=== PATIENT | female | born 1980 | race Caucasian/White ===

== ENCOUNTER → 2017-09-29 | Outpatient (CLI) | payer BC ==
[~2017-09-29] VITALS: Ht 166.4 cm; Wt 133.8 kg
[~2017-09-29] MED LIST: ADVAIR 100/501 DISK IH; ENDOCET 5-3251 EACH PO; GLUCOPHAGE500 MG PO; HYDROCHLOROTHIA25 MG PO; IBUPROFEN800 MG PO; MIRENA1 EACH IY; NEXIUM40 MG PO; PRENA1 CHEW TA1.4 MG PO; SINGULAIR10 MG PO; SYMBICORT60 INHALA1 IH; VENTOLIN HFA18 GM IH; ZYRTEC10 M2 PO
== END | disposition home or self-care (01) ==
LOC: AMB 13:37
PROC: 0DB68ZX Excision of Stomach, Via Natural or Artificial Opening Endoscopic, Diagnostic (ICD-10-PCS; principal; 2017-09-29)
DX: K21.9 Gastro-esophageal reflux disease without esophagitis (principal); K31.7 Polyp of stomach and duodenum; K44.9 Diaphragmatic hernia without obstruction or gangrene; E66.01 Morbid (severe) obesity due to excess calories; Z68.42 Body mass index [BMI] 45.0-49.9, adult; J45.909 Unspecified asthma, uncomplicated; N97.9 Female infertility, unspecified; E28.2 Polycystic ovarian syndrome; Z82.49 Family history of ischemic heart disease and other diseases of the circulatory system; Z83.42 Family history of familial hypercholesterolemia; Z80.3 Family history of malignant neoplasm of breast; Z91.048 Other nonmedicinal substance allergy status
CPT/HCPCS: 88305; J2250; J3010